=== PATIENT | male | born 1985 | race Hispanic/Latino ===

== ENCOUNTER 2023-03-29 09:46 | Inpatient (IN) | payer OTHER, SELFPAY ==
[2023-03-29] MEDS ORDERED: Iopamidol 300 61% 100 ML VIAL FS ONE (10:23)
[2023-03-29 10:37] LABS: #Eosinphils 0.1 10x3/uL (0.0-0.5); #Neutrophils 11.3 10x3/uL (1.5-8.4); %Basophils 0.3 % (0.0-2.0); %Eosinophils 0.8 % (0.0-6.0); %Lymphocytes 13.1 % (18.0-47.0); %Monocytes 6.9 % (0.0-10.0); %Neutrophils 78.5 % (40.0-75.0); Hematocrit 40.6 % (38.8-50.0); Hemoglobin 14.1 g/dL (13.5-17.5); Mean Corpuscular HGB CONC 34.7 g/dL (32.0-36.0); Mean Corpuscular Volume 86.4 fl (81.2-95.1); Mean Platelet Volume 9.5 fl (7.4-10.4); Platelet Count 273 10x3/uL (150-450); RBC Distribution Width 12.2 % (11.5-14.5); White Blood Cell (WBC) Count 14.4 10x3/uL (3.5-10.5)
[2023-03-29] MEDS ORDERED: Dexamethasone 10 MG/ML VIAL ONE (10:46)
[2023-03-29] MEDS ORDERED: Ketorolac Tromethamine 30 MG/ML VIAL ONE (10:46)
[2023-03-29 10:54] LABS: ALT (SGPT) 29 U/L (8-55); AST (SGOT) 17 U/L (5-34); Albumin 4.4 g/dL (3.5-5.0); Alkaline Phosphatase 52 U/L (40-110); Anion Gap 17 mmol/L (10-20); BUN (Urea Nitrogen) 11 mg/dL (8.9-20.6); Bilirubin, Total 0.8 mg/dL (0.2-1.2); Calc. Creatinine Clearance 0 mL/min (70-130); Calcium 8.9 mg/dL (7.8-10.44); Carbon Dioxide 23 mmol/L (22-29); Chloride 101 mmol/L (98-107); Estimated GFR 80; Globulin 3.2 g/dL (2.4-3.5); Glucose 115 mg/dL (70-105); Potassium 3.8 mmol/L (3.5-5.1); Protein, Total 7.6 g/dL (6.0-8.3); Sodium 137 mmol/L (136-145)
[2023-03-29] MEDS ORDERED: Clindamycin/D5W 900 MG in Premix 1 BAG IVPB SCH (11:30)
[2023-03-29 11:34] LABS: SARS-CoV-2 NAA Rapid Test Not Detected (NotDetected)
[2023-03-29] MEDS ORDERED: Ampicillin/Sulbactam 3 GM in Sodium Chloride 0.9% 100 ML IVPB SCH (12:45)
[2023-03-29] MEDS ORDERED: Ondansetron PF 4 MG/2 ML Vial IVP PRN (14:36)
[2023-03-29] MEDS ORDERED: HYDROcodone/Acetaminophen 5/325 mg Tablet PO PRN (14:36)
[2023-03-29] MEDS ORDERED: Acetaminophen 325 MG TAB PO PRN (14:36)
[2023-03-29] MEDS ORDERED: Ketorolac Tromethamine 30 MG/ML VIAL IVP PRN (14:54)
[2023-03-29] MEDS ORDERED: Sodium Chloride 0.9% 1,000 ML IV SCH (15:15)
[2023-03-29 16:02] LABS: Lactic Acid 1.1 mmol/L (0.5-2.2)
[2023-03-29] MEDS ORDERED: Lidocaine 1% w/Epinephrine 1:100K 20 ML VIAL FS SCH (17:00)
[2023-03-29 18:52] VITALS: BMI 34.5
[2023-03-29] MEDS: Dexamethasone 20 MG/5 ML VIAL SLOW IVP SCH ×2 (19:19→22:58)
[2023-03-29] MEDS: Ampicillin/Sulbactam 3 GM in Sodium Chloride 0.9% 100 ML IVPB SCH (22:57)
[2023-03-29] MEDS: Clindamycin/D5W 600 MG in Premix 1 BAG IVPB SCH (22:57)
[2023-03-29] MEDS: Sodium Chloride 0.9% 1,000 ML IV SCH (23:01)
[2023-03-30] MEDS: Ampicillin/Sulbactam 3 GM in Sodium Chloride 0.9% 100 ML IVPB SCH ×3 (03:44→21:53)
[2023-03-30] MEDS: Sodium Chloride 0.9% 1,000 ML IV SCH (03:45)
[2023-03-30 04:24] LABS: #Monocytes 0.5 10x3/uL (0.0-1.1); #Neutrophils 12.3 10x3/uL (1.5-8.4); %Basophils 0.1 % (0.0-2.0); %Lymphocytes 9.9 % (18.0-47.0); %Monocytes 3.6 % (0.0-10.0); %Neutrophils 85.8 % (40.0-75.0); Hematocrit 38.6 % (38.8-50.0); Hemoglobin 13.3 g/dL (13.5-17.5); Mean Corpuscular HGB CONC 34.5 g/dL (32.0-36.0); Mean Corpuscular Hemoglobin 29.8 pg (27.0-33.0); Mean Corpuscular Volume 86.4 fl (81.2-95.1); Mean Platelet Volume 9.5 fl (7.4-10.4); Platelet Count 293 10x3/uL (150-450); RBC Distribution Width 12.1 % (11.5-14.5); Red Blood Cell (RBC) Count 4.47 10x6/uL (4.32-5.72); White Blood Cell (WBC) Count 14.3 10x3/uL (3.5-10.5)
[2023-03-30 04:37] LABS: Anion Gap 15 mmol/L (10-20); BUN (Urea Nitrogen) 14 mg/dL (8.9-20.6); Calc. Creatinine Clearance 165 mL/min (70-130); Carbon Dioxide 23 mmol/L (22-29); Chloride 104 mmol/L (98-107); Estimated GFR 108; Glucose 143 mg/dL (70-105); Potassium 3.8 mmol/L (3.5-5.1); Sodium 138 mmol/L (136-145)
[2023-03-30] MEDS: Clindamycin/D5W 600 MG in Premix 1 BAG IVPB SCH (06:13)
[2023-03-30] MEDS ORDERED: VANCOMYCIN IVPB PRN (08:20)
[2023-03-30] MEDS: Dexamethasone 20 MG/5 ML VIAL SLOW IVP SCH ×3 (08:29→18:01)
[2023-03-30] MEDS ORDERED: VANCOMYCIN 2 GRAM/400 ML BAG 2 GM in Premix 1 BAG IVPB SCH (09:00)
[2023-03-30] MEDS: Pantoprazole 40 MG VIAL IVP SCH (09:17)
[2023-03-30] MEDS: Vancomycin 1 GM in Sodium Chloride 0.9% 250 ML 250 ML IVPB SCH (18:03)
[2023-03-31] MEDS: Dexamethasone 20 MG/5 ML VIAL SLOW IVP SCH ×2 (00:46→08:54)
[2023-03-31] MEDS: Vancomycin 1 GM in Sodium Chloride 0.9% 250 ML 250 ML IVPB SCH (00:47)
[2023-03-31 05:11] LABS: #Monocytes 0.5 10x3/uL (0.0-1.1); #Neutrophils 11.7 10x3/uL (1.5-8.4); %Basophils 0.1 % (0.0-2.0); %Eosinophils 0.1 % (0.0-6.0); %Lymphocytes 12.2 % (18.0-47.0); %Monocytes 3.3 % (0.0-10.0); %Neutrophils 82.7 % (40.0-75.0); Hematocrit 37.6 % (38.8-50.0); Hemoglobin 12.9 g/dL (13.5-17.5); Mean Corpuscular HGB CONC 34.3 g/dL (32.0-36.0); Mean Corpuscular Hemoglobin 29.8 pg (27.0-33.0); Mean Corpuscular Volume 86.8 fl (81.2-95.1); Mean Platelet Volume 9.8 fl (7.4-10.4); Platelet Count 306 10x3/uL (150-450); RBC Distribution Width 12.1 % (11.5-14.5); Red Blood Cell (RBC) Count 4.33 10x6/uL (4.32-5.72); White Blood Cell (WBC) Count 14.1 10x3/uL (3.5-10.5)
[2023-03-31] MEDS: Guaifenesin DM 100-10/5 ML UDCUP PO PRN ×2 (05:13→12:34)
[2023-03-31] MEDS: Ampicillin/Sulbactam 3 GM in Sodium Chloride 0.9% 100 ML IVPB SCH ×2 (05:13→12:29)
[2023-03-31 08:15] LABS: Vancomycin, Trough 9.1 ug/mL
[2023-03-31] MEDS: Pantoprazole 40 MG VIAL IVP SCH (08:54)
[2023-03-31] MEDS ORDERED: VANCOMYCIN 1.25 GM/250 ML BAG 1.25 GM in Premix 1 BAG IVPB SCH (09:00)
[2023-03-31 13:18] VITALS: TEMP 98.5
[2023-03-31 17:31] VITALS: BP 138/85
== END 2023-03-31 16:38 | disposition home or self-care (01) | DRG 854 ==
LOC: CSHERS 09:46 → CSHTELE 12:37 → OBSVTOIN 03-31 11:05
PROVIDERS: ADMIT Internal Medicine; ATTEND Family Medicine
PROC: 0CJS8ZZ Inspection of Larynx, Via Natural or Artificial Opening Endoscopic (ICD-10-PCS; principal; 2023-03-29)
PROC: 0C9P0ZZ Drainage of Tonsils, Open Approach (ICD-10-PCS; 2023-03-29)
PROC: 0C9P3ZZ Drainage of Tonsils, Percutaneous Approach (ICD-10-PCS; 2023-03-29)
PROC: 3E03329 Introduction of Other Anti-infective into Peripheral Vein, Percutaneous Approach (ICD-10-PCS; 2023-03-29)
DX: A41.9 Sepsis, unspecified organism (principal); J39.0 Retropharyngeal and parapharyngeal abscess; Z83.3 Family history of diabetes mellitus; Z82.49 Family history of ischemic heart disease and other diseases of the circulatory system; Z11.52 Encounter for screening for COVID-19; Z79.899 Other long term (current) drug therapy
CPT/HCPCS: 36415; 70491; 80048; 80053; 80202; 83036; 83605; 85025; 86140; 87040; 87081; 87430; 96375; 96376; C9113; G0378; J0295; J1100; J1885; J3370; J3490; J7050